=== PATIENT | female | born 2000 | race American Indian/Alaskan Native ===

== ENCOUNTER 2021-11-23 22:06 | Outpatient (CLI) | payer MEDICAID, OTHER ==
[2021-11-23 22:45] VITALS: BP 110/66
[2021-11-23] MEDS ORDERED: LACTATED RINGERS 1,000 ML ONE (23:34)
[2021-11-24 00:55] LABS: Bilirubin,Urine NEG (Negative); Blood,Urine LG (Negative); Color,Urine Yellow (Yellow); Protein,Urine <15 mg/dL mg/dL (Negative); Urobilinogen,Urine < 2.0 mg/dL (<2.0)
[2021-11-24 00:57] LABS: Mucus,Urine FEW /HPF
--- NOTE | 2021-11-24 03:23 | Ultrasound Report ---
US OB follow up INDICATION / CLINICAL INFORMATION: EFW, RANDOLPH COMPARISON: None available. TECHNIQUE: Using a transcutaneous probe, multiple grayscale, color Doppler, and spectral Doppler imag es of the uterus and fetus were captured and stored. FINDINGS: Single cephalic fetus heart rate 130 bpm. The amniotic fluid index is within normal limits measuring 15.7 cm. An anterior grade 2 placenta is demonstrated. Biparietal Diameter = 8.0 cm = 32, 0 weeks, days Head Circumference = 29.3 cm = 32, 2 weeks, days Abdominal Circumference = 27.1 cm = 31, 2 weeks, days Femur Length = 6.5 cm = 33, 3 weeks, days Average Ultrasound Age (AUA) = 34, 3 weeks, days. EDC 01/02/2022. Clinical estimate of gestational age based on last menstrual period of 03/28/2021 is 34 weeks 3 days. Estimated weight = 1896 g. Growth percentile 3. IMPRESSION: 1. Single living fetus with estimated weight 1896 g and normal amniotic fluid index measuring 1 5.7 cm. Signer Name: Saji Blackmon II, MD Signed: 11/24/2021 3:19 AM Workstation Name: [id number]
[2021-11-24] MEDS ORDERED: LACTATED RINGERS 1,000 ML IV ONE (23:00)
== END 2021-11-24 03:45 ==
LOC: TRG 22:06 → EEVIPCON 22:06 → APU 22:07 → TRG 11-24 03:45
PROVIDERS: ATTEND Obstetrics & Gynecology Gynecology
DX: O46.93 Antepartum hemorrhage, unspecified, third trimester (principal); Z3A.34 34 weeks gestation of pregnancy
CPT/HCPCS: 59025; 76816; 81001; 96360